=== PATIENT | female | born 1980 | race Two or more races ===

== ENCOUNTER 2021-04-11 11:50 | Inpatient (IN) | payer OTHER ==
[2021-04-11] MEDS ORDERED: ELECTROLYTE-148 SOLN 500 ML IV ONE (12:15)
[2021-04-11] MEDS ORDERED: CITRIC ACID/SODIUM CITRATE 30 ML UNIT-DOSE CUP PO ONE (12:15)
[2021-04-11] MEDS: ELECTROLYTE-148 SOLN 1,000 ML IV SCH (12:45)
[2021-04-11 13:20] VITALS: BMI 31.8
[2021-04-11] MEDS ORDERED: ONDANSETRON 4 MG/2 ML VIAL IVPUSH PRN (13:45)
[2021-04-11] MEDS ORDERED: morphine SULFATE/PF 1 MG/2 ML (2cc Syringe - QUVA) EP ONE (13:45)
[2021-04-11] MEDS ORDERED: morphine SULFATE/Preservative Free 0.5 MG/ML (1cc Syringe) ONE (13:50)
[2021-04-11] MEDS ORDERED: ceFAZolin SODIUM 1 GM VIAL ONE (13:50)
[2021-04-11] MEDS ORDERED: OXYTOCIN 10 UNIT/ML 10ML MDV ONE (14:26)
[2021-04-11] MEDS ORDERED: ONDANSETRON 4 MG/2 ML VIAL ONE (14:41)
[2021-04-11] MEDS ORDERED: METHYLERGONOVINE MALEATE 0.2 MG/1 ML AMP IM PRN (15:00)
[2021-04-11] MEDS ORDERED: oxyCODONE HCL 5 MG TABLET PO PRN (15:00)
[2021-04-11] MEDS ORDERED: ACETAMINOPHEN 325 MG TABLET (FP) PO PRN (15:00)
[2021-04-11] MEDS ORDERED: OXYTOCIN 20 UNITS in 0.9% NS 20 UNIT/1,000 ML INFUS.BAG IV SCH (15:00)
[2021-04-11] MEDS ORDERED: LABETALOL HCL 200 MG TABLET (FP) PO ONE (18:15)
[2021-04-12] MEDS: LABETALOL HCL 200 MG TABLET (FP) PO SCH ×4 (02:09→21:23)
[2021-04-12] MEDS: IBUPROFEN 600 MG TABLET (FP) PO PRN ×2 (05:50→17:24)
[2021-04-12 08:26] LABS: BASO % 0.3 % (0-2.0); EOS % 0.2 % (0-4.5); HEMATOCRIT 33.5 % (32.4-45.2); HEMOGLOBIN 11.8 GM/dL (10.7-15.3); LYMPH % 14.2 % (8-40); MCH 31.7 pg (25.7-33.7); MCHC 35.2 g/dl (32.0-36.0); MEAN CELL VOLUME 89.9 fl (80-96); MEAN PLT VOLUME 8.3 fl (7.5-11.1); MONO % 5.1 % (3.8-10.2); NEUT % 80.2 % (42.8-82.8); PLATELET COUNT 171 10^3/uL (134-434); RBC 3.73 M/mm3 (3.60-5.2); RDW 13.8 % (11.6-15.6)
[2021-04-12] MEDS ORDERED: BISACODYL 10 MG SUPP.RECT RC PRN (15:00)
[2021-04-12] MEDS: SIMETHICONE 80 MG TAB.CHEW (FP) PO PRN (21:23)
[2021-04-13] MEDS: LABETALOL HCL 200 MG TABLET (FP) PO SCH ×2 (09:33→22:42)
[2021-04-13] MEDS: ELECTROLYTE-148 SOLN 1,000 ML IV SCH (13:08)
[2021-04-13] MEDS: SIMETHICONE 80 MG TAB.CHEW (FP) PO PRN (13:11)
[2021-04-13] MEDS: IBUPROFEN 600 MG TABLET (FP) PO PRN (13:11)
[2021-04-14 07:17] LABS: BASO % 0.2 % (0-2.0); EOS % 0.6 % (0-4.5); HEMATOCRIT 31.1 % (32.4-45.2); HEMOGLOBIN 10.9 GM/dL (10.7-15.3); LYMPH % 13.8 % (8-40); MCH 31.7 pg (25.7-33.7); MCHC 35.1 g/dl (32.0-36.0); MEAN CELL VOLUME 90.3 fl (80-96); MONO % 4.9 % (3.8-10.2); NEUT % 80.5 % (42.8-82.8); PLATELET COUNT 216 10^3/uL (134-434); RBC 3.44 M/mm3 (3.60-5.2); RDW 14.2 % (11.6-15.6); WHITE BLOOD COUNT 10.5 K/mm3 (4.0-10.0)
[2021-04-14] MEDS: LABETALOL HCL 200 MG TABLET (FP) PO SCH (09:17)
[2021-04-14] MEDS: IBUPROFEN 600 MG TABLET (FP) PO PRN (09:17)
[2021-04-14 09:55] VITALS: BP 136/79; PULSE 90; TEMP 98.9
== END 2021-04-14 13:45 | disposition home or self-care (01) | DRG 540 ==
LOC: JLDR 11:50 → J3W 16:40
PROVIDERS: ADMIT Obstetrics & Gynecology; ATTEND Obstetrics & Gynecology
PROC: 10D00Z1 Extraction of Products of Conception, Low, Open Approach (ICD-10-PCS; principal; 2021-04-11)
DX: O32.8XX0 Maternal care for other malpresentation of fetus, not applicable or unspecified (principal); Z3A.39 39 weeks gestation of pregnancy; Z37.0 Single live birth
CPT/HCPCS: 36415; 80053; 85025; 85610; 86850; 86900; 86901; 88307-TC; C9803; U0003; U0005

== ENCOUNTER 2021-07-11 09:35 | Emergency (ER) | payer OTHER ==
[2021-07-11 10:15] VITALS: BP 116/80; PULSE 92; TEMP 98.1; BMI 27.8
[2021-07-11] MEDS ORDERED: ACETAMINOPHEN 500 MG TABLET (FP) PO ONE (12:06)
[2021-07-11] MEDS ORDERED: ACETAMINOPHEN 500 MG TABLET (FP) ONE (12:08)
== END 2021-07-11 12:25 | disposition home or self-care (01) ==
LOC: JER 09:35 → JERFT 09:35
DX: N61.0 Mastitis without abscess (principal)
CPT/HCPCS: 99283-25

== ENCOUNTER 2024-08-02 11:06 | Emergency (ER) | payer OTHER ==
[2024-08-02 11:36] VITALS: BP 115/88; PULSE 90; RESP 16; TEMP 98.2; BMI 26.0
[2024-08-02] MEDS ORDERED: ACETAMINOPHEN INJECTION 100 ML ONE (12:21)
[2024-08-02] MEDS ORDERED: ONDANSETRON 4 MG/2 ML VIAL ONE (12:21)
[2024-08-02] MEDS: ACETAMINOPHEN 1000 MG/100 ML BAG IVPB ONE (12:27)
[2024-08-02] MEDS: SODIUM CHLORIDE 1,000 ML IV STA ×2 (12:28→13:44)
[2024-08-02] MEDS: ONDANSETRON 4 MG/2 ML VIAL IVPUSH ONE (12:28)
[2024-08-02 12:58] LABS: BASO % 0.1 % (0-2.0); HEMATOCRIT 46.5 % (32.4-45.2); HEMOGLOBIN 15.6 GM/dL (10.7-15.3); LYMPH % 8.3 % (8-40); MCH 28.7 pg (25.7-33.7); MCHC 33.6 g/dl (32.0-36.0); MEAN CELL VOLUME 85.4 fl (80-96); MEAN PLT VOLUME 7.5 fl (7.5-11.1); MONO % 12.4 % (3.8-10.2); NEUT % 79.2 % (42.8-82.8); PLATELET COUNT 278 10^3/uL (134-434); RBC 5.45 M/mm3 (3.60-5.2); RDW 12.7 % (11.6-15.6); WHITE BLOOD COUNT 7.4 K/mm3 (4.0-10.0)
[2024-08-02 13:15] LABS: CHLORIDE 102 mmol/L (98-107); POTASSIUM 3.5 mmol/L (3.5-5.1); SODIUM 135 mmol/L (136-145)
[2024-08-02 13:17] LABS: CALCIUM 9.6 mg/dL (8.5-10.1)
[2024-08-02 13:19] LABS: ALBUMIN 4.8 g/dl (3.4-5.0); ANION GAP 8 mmol/L (4-13); BLOOD UREA NITROGEN 34.3 mg/dL (7-18); CO2 25 mmol/L (21-32); GLUCOSE,RANDOM 94 mg/dL (74-106)
[2024-08-02 13:21] LABS: CREATININE 1.3 mg/dL (0.55-1.3); SGOT/AST 32 U/L (15-37); SGPT/ALT 74 U/L (13-61)
[2024-08-02 13:23] LABS: BILIRUBIN,TOTAL 0.6 mg/dL (0.2-1); TOT PROT 8.8 g/dl (6.4-8.2)
[2024-08-02 13:24] LABS: ALK PHOS 100 U/L (45-117)
[2024-08-02 14:13] LABS: HIV INTERPRETATION NEGATIVE (NEGATIVE)
[2024-08-02 14:59] LABS: PH,URINE 5.5 (5.0-8.0); URINE APPEARANCE CLOUDY; URINE BILIRUBIN NEGATIVE (NEGATIVE); URINE COLOR YELLOW; URINE GLUCOSE (UA) NEGATIVE (NEGATIVE); URINE KETONE TRACE (NEGATIVE); URINE LEUK ESTERASE TRACE (NEGATIVE); URINE NITRITE NEGATIVE (NEGATIVE); URINE PROTEIN 1+ (NEGATIVE); URINE UROBILINOGEN 0.2 mg/dL (0.2-1.0)
[2024-08-02 15:05] LABS: HCG,QUALITATIVE URINE POSITIVE
[2024-08-02 15:24] LABS: URINE RBC 41.4 /uL (0-23.9); URINE WBC 203.4 /uL (0-25.8)
[2024-08-02 15:25] LABS: EPI CELLS 41.7 /uL (0-25.1); HYALINE CASTS 16.46 /uL (0-3.1); URINE BACTERIA 332.6 /uL (0-1359)
== END 2024-08-02 15:51 | disposition home or self-care (01) ==
LOC: JER 11:06
PROC: 3E033NZ Introduction of Analgesics, Hypnotics, Sedatives into Peripheral Vein, Percutaneous Approach (ICD-10-PCS; principal; 2024-08-02)
PROC: 3E033GC Introduction of Other Therapeutic Substance into Peripheral Vein, Percutaneous Approach (ICD-10-PCS; 2024-08-02)
PROC: 3E0337Z Introduction of Electrolytic and Water Balance Substance into Peripheral Vein, Percutaneous Approach (ICD-10-PCS; 2024-08-02)
DX: K52.9 Noninfective gastroenteritis and colitis, unspecified (principal); R11.2 Nausea with vomiting, unspecified; Z20.822 Contact with and (suspected) exposure to COVID-19
CPT/HCPCS: 0241U-QW; 36415; 80053; 81003; 83690; 84702; 84703; 85025; 86803; 87077; 87086; 87389; 99284-25; J0131